=== PATIENT | female | born 1970 | race Caucasian/White ===

== ENCOUNTER 2024-11-09 14:08 | Outpatient (CLI) | payer BC, SELFPAY ==
--- NOTE | 2024-11-09 14:16 | US_ITS ---
PROCEDURE: BREAST LIMITED UNILATERAL REASON FOR EXAM: Palpable lump in the inferior medial aspect of the right breast. COMPARISON: Comparison is made with prior mammogram done earlier in the day. TECHNIQUE: Targeted bilateral breast ultrasound. FINDINGS: RIGHT: Ultrasound targeted to the inferior medial aspect at the right breast. The breast tissue appears sonographically normal. No cyst, solid mass, or suspicious shadowing. US/Breast Limited Unilateral IMPRESSION: No abnormality is seen. BI-RADS 1: NEGATIVE. RECOMMEND ANNUAL MAMMOGRAPHIC SCREENING. Reading Location: [place] [id number]
--- NOTE | 2024-11-09 14:16 | BI_ITS ---
PROCEDURE: DIAG MAMM W/CAD, unilateral REASON FOR EXAM: Abnormal screening mammogram. COMPARISON: Comparison is made with prior outside examination dated July 17 2000. TECHNIQUE: Unilateral left diagnostic digital breast tomosynthesis with C-View and 2D FFDM. Compression spot views were obtained as well. Computer aided detection. FINDINGS: The breast is heterogeneously dense which may obscure small masses. No suspicious abnormality is seen. Targeted sonographic correlation recommended. BI/DIAG MAMM W/CAD, BILAT IMPRESSION: BI-RADS 0: INCOMPLETE - NEED ADDITIONAL IMAGING EVALUATION. The patient will be notified of the results by letter. Reading Location: [id number]
== END 2024-11-09 23:59 | disposition home or self-care (01) ==
DX: R92.8 Other abnormal and inconclusive findings on diagnostic imaging of breast (principal); R92.30 Dense breasts, unspecified
CPT/HCPCS: 76642; 77062; 77066; G0279